=== PATIENT | male | born 1985 | race Caucasian/White ===

== ENCOUNTER 2024-10-16 21:05 | Emergency (ER) | payer SELFPAY ==
[~2024-10-16] VITALS: Ht 177.8 cm; Wt 96.9 kg
[2024-10-16 21:18] VITALS: BP 101/61; PULSE 71; O2SAT 97
--- NOTE | 2024-10-16 22:33 | Physician Documentation ---
History of Present Illness ~ Chief Complaint: Laceration Stated Complaint: HAND LAC Time Seen by MD: 22:05 HPI This is a 39-year-old male who presents with a puncture wound to the base of his left thumb on the dorsal aspect of his hand after a knife he was using slipped and poked him in the hand, patient reports that he has been using the knife to clean fish earlier in the day though did rinse it off. Patient reports no other acute symptoms or concerns. Patient reports no loss of feeling to the finger. Tetanus Within 5 Years: Yes (WITHIN THE LAST YEAR) Medication Reconciliation Allergies: Coded Allergies: No Known Allergies (Unverified , 10/16/24) Scheduled Cephalexin*Monohydrate* (Keflex*), 1 CAP PO QID Past Medical History Past Medical History: No Pertinent History Review of Systems ROS Laceration to left hand as stated above in the HPI, otherwise all systems are reviewed and negative. Physical Exam Vital Signs: Temperature: 96.8, Source: Temporal, Heart Rate: 71, Respiratory Rate: 15, BP: 101/61, Pulse Oximetry: 97, Weight: 96.920 Physical Exam VITALS: Reviewed and as above. GENERAL: Alert, nontoxic appearing, no apparent distress. RESPIRATORY: No increased work of breathing, no respiratory distress, speaking in full clear sentences CV: Brisk capillary refill to left thumb MUSCULOSKELETAL: Range of motion and strength intact in left thumb SKIN: 1 cm laceration to posterior aspect of left hand at the base of right thumb, no surrounding erythema or swelling NEURO: Sensation intact to right thumb Procedures Laceration/Wound Repair Laceration : Location: Dorsal aspect of left hand at base of left thumb Length (cm): 1 Anesthesia: Lidocaine Volume Anesthetic (mls): 3 Prep: irrigated by nurse Margins: revised Foreign Body: not identified Repaired: skin Wound Repaired With: sutures Suture Size/Type: 5-0 Number of Superficial Sutures: 4 Dressing Applied: simple Tolerated Procedure Well?: yes, no complications Progress Results/Orders Results/Orders Orders - BECKI MITTAL Laceration/I&D Tray Set Up (10/16/24 22:28) Wound Care Orders (10/16/24 22:28) Completed Orders - BECKI MITTAL Ketorolac Trometh 15mg/Ml Vial (Toradol (10/16/24 22:10) Lidocaine 1% 30ml Vial (Xylocaine 1% Via (10/16/24 22:30) Medications Received in ER Medications (Trade) Dose Ordered Sig/Tamy Route PRN Reason Start Time Stop Time Status Last Admin Dose Admin (Toradol injection) 15 mg ONCE ONCE IM 10/16/24 22:10 10/16/24 22:11 DC 10/16/24 22:36 15 MG Vital Signs 10/16/24 10/16/24 10/16/24 21:18 22:36 23:53 Temp 96.8 96.8 Pulse 71 Resp 15 14 B/P (MAP) 101/61 Pulse Ox 97 Medical Decision Making Findings This is a 39-year-old male who presents with a puncture wound to dorsal aspect of his left hand at the base of was left thumb, does not appear to impact tendon and thumb was neurovascularly intact. The wound was thoroughly irrigated and there was no retained foreign body observed. The wound was successfully repaired without complications, patient tolerated procedure well. Due to concern of grossly contaminated knife patient will be placed on short course of prophylactic antibiotics. Patient Tdap has been updated in the last year. No other injuries reported or observed. Remainder of physical exam benign and patient is well-appearing hemodynamically stable and appropriate for outpatient follow up. Patient provided home care instructions, return to care instructions, and follow up instructions which he verbalized understanding of. Differential Dx:Considerations: Include: Avulsion, Contusion, Fracture, Hematoma, Neurovascular injury, Retained foreign body Departure Time of Disposition: 23:50 Disposition: 01 HOME / SELF CARE / HOMELESS Impression: Primary Impression: Laceration Condition: Improved Discharge Instructions: Laceration Care, Adult, [id number] Additional Instructions: Keep the area clean dry and covered. Follow up in 2-3 days with the primary care provider or return here for wound recheck. Please take antibiotics as prescribed. Keep an eye on the area for signs of infection such as increased pain and swelling to the area or discharge from the wound. Return to your choice of medical provider in 7-10 days for suture removal. Please follow up with your primary care provider in the next few days. Please return to the emergency department for any new or worsening concerning symptoms. Referrals: NO PRIMARY CARE PROVIDER (PCP) Prescriptions Cephalexin*Monohydrate* (Keflex*) 500 Mg Capsule 1 CAP PO QID for 5 Days, #20 CAP Prov: BECKI MITTAL 10/16/24 Education Educated: Patient Educated regarding: diagnosis, treatment, prognosis, need for follow up Signature Scribe Signature: No Scribe Attestation: The note accurately reflects work and decisions made by me.TWILA Blair 10/17/24 01:52 BECKI MITTAL [facility] Oct 16, 2024 22:33
[2024-10-16 22:36] VITALS: RESP 14
[2024-10-16] MEDS: ketorolac trometh 15mg/ml vial 15 MG/ML ML IM ONE (22:36)
[2024-10-16] MEDS: LIDOcaine 1% 30ml preserv. free vial IJ ONE (22:36)
[2024-10-16] MEDS ORDERED: CEPH-585 PO (23:50)
[2024-10-16 23:53] VITALS: TEMP 96.8
== END 2024-10-16 23:55 | disposition home or self-care (01) ==
LOC: ER 21:05
DX: S61.012A Laceration without foreign body of left thumb without damage to nail, initial encounter (principal); W26.0XXA Contact with knife, initial encounter; Y93.89 Activity, other specified; Y92.89 Other specified places as the place of occurrence of the external cause; Y99.8 Other external cause status
CPT/HCPCS: 12001; 96372; 99283; J1885; A6258; A6449